=== PATIENT | male | born 2000 | race Caucasian/White ===

== ENCOUNTER 2024-08-21 17:27 | Emergency (ER) | payer OTHER ==
[~2024-08-21] VITALS: Ht 172.7 cm; Wt 80.0 kg
[2024-08-21 17:38] LABS: BASOPHILS 0.8 % (0-2); EOSINOPHILS 2.1 % (0-6); HEMATOCRIT 44.4 % (35.0-50.0); HEMOGLOBIN 16.1 g/dL (12.0-18.0); LYMPHOCYTES 45.6 % (24-44); MCH 36.2 (27-36); MCHC 36.2 g/dl (30-36); MCV 99.9 fl (81-99); MONOCYTES 13.6 % (0-12); NEUTROPHILS 37.9 % (39-80); PLATELET COUNT 188 K/uL (140-440); RBC 4.44 M/ul (4.3-5.7); RDW 13.6 (10.5-15.0)
[2024-08-21 17:52] LABS: ALBUMIN 4.4 g/dL (3.4-5.0); ALBUMIN/GLOBULIN RATIO 1.38 (1.1-2.4); ANION GAP 20.3 (7-21); BILIRUBIN, TOTAL 1.9 mg/dL (0.2-1.0); BUN/CREATININE RATIO 10.74 (6.0-28.6); CALCIUM 9.6 mg/dL (8.5-10.1); CREATININE, SERUM 1.21 mg/dL (0.70-1.30); POTASSIUM 3.3 mmol/L (3.5-5.1); PROTEIN, TOTAL 7.6 g/dL (6.4-8.2)
[2024-08-21] MEDS ORDERED: NALTREXONE HCL50 MG PO (19:13)
[2024-08-21] MEDS ORDERED: LORazepam 1 MG HOME.PACK PO ONE (19:15)
[2024-08-21 19:40] VITALS: BP 116/73
== END 2024-08-21 19:41 | disposition home or self-care (01) ==
LOC: ED 17:27
PROVIDERS: Emergency Medicine
DX: R56.9 Unspecified convulsions (principal)
CPT/HCPCS: 36415; 70450; 80053; 85025; 99285-25